=== PATIENT | male | born 1955 | race Caucasian/White ===

== ENCOUNTER 2022-11-13 13:37 | Inpatient (IN) ==
[2022-11-13] MEDS ORDERED: SODIUM CHLORIDE 0.9% 1,000 ML IV SCH (14:15)
[2022-11-13] MEDS ORDERED: ACETAMINOPHEN 500 MG TAB PO STA (14:38)
[2022-11-13] MEDS ORDERED: cefTRIAXone SODIUM 2,000 MG/70 ML BAG IV STA (14:38)
[2022-11-13 14:48] LABS: Basophils # (auto) 0.05 K/uL (0.00-0.20); Basophils % (auto) 0.3 %; Eosinophils % (auto) 0.5 %; Hematocrit (blood only) 34.6 % (42.0-52.0); Hemoglobin 11.6 g/dl (14.0-18.0); Immature Granulocytes # (auto) 0.12 K/uL (0.01-0.20); Immature Granulocytes % (auto) 0.7 %; Lymphocytes # (auto) 1.43 K/uL (1.20-3.40); Lymphocytes % (auto) 7.8 %; Mean Corpuscular Hemoglobin 28.5 pg (25.0-34.0); Mean Corpuscular Hgb Conc 33.5 g/dL (32.0-36.0); Mean Platelet Volume 11.1 fL (9.4-12.4); Monocytes # (auto) 1.41 K/uL (0.11-0.59); Monocytes % (auto) 7.7 %; Neutrophils # (auto) 15.28 K/uL (1.40-6.50); Platelet Count 302 K/uL (130-400); RDW Coefficient of Variation 13.2 % (11.5-14.5); RDW Standard Deviation 41.3 fL (36.4-46.3); Red Blood Count 4.07 M/uL (4.70-6.10); White Blood Count 18.39 K/ul (4.8-10.8)
[2022-11-13 15:04] LABS: Albumin Level 3.8 gm/dl (3.4-5.0); BUN Creatinine Ratio 17.8 (10-20); Bilirubin Direct 0.1 mg/dl (0-0.2); Bilirubin,Total 0.4 mg/dl (0.2-1.0); Calcium 8.6 mg/dl (8.6-10.3); Creatinine Clr Calc Pharmacy 95.6 ml/min; Est GFR (African American) 84.6 ml/min; Magnesium 1.9 mg/dl (1.7-2.4); Potassium 3.3 mmol/L (3.5-5.1); Total Protein 7.3 gm/dl (6.0-8.3)
[2022-11-13] MEDS: DAPTOmycin 575 MG in SYRINGE 0 ML IV SCH (15:10)
--- NOTE | 2022-11-13 15:52 | History & Physical Report ---
Date of Service November 13, 2022 Assessment & Plan (1) Septic joint of left knee joint: (2) History of total left knee replacement: Plan: Admit to [facility] Patient presenting from home with reports of left knee pain, swelling, erythema. S/p left TKA by Dr. Song on 10/13/2022. Had joint aspiration on 11/11 with culture growing MSSA In the ED, low-grade temp 38.0, WBC 18 K. BP stable, normal lactic acid. S/p IV daptomycin and IV ceftriaxone in ED, will continue with IV daptomycin Ortho consult, n.p.o. after midnight for possible procedure tomorrow (3) HTN (hypertension): Plan: Chronic, stable Continue lisinopril, lisinopril/HCTZ, amlodipine (4) HLD (hyperlipidemia): Plan: Chronic, stable Holding statin while on daptomycin DVT PROPHYLAXIS SCDs due to possible procedure tomorrow Patient seen in collaboration with Dr. Abbasi. I spent a total of 75 minutes coordinating, documenting, and providing care for this patient excluding time spent in the performance of separately billed services. This included personally reviewing all current laboratories and imaging studies, medication reconciliation, outpatient chart review, and discussion with specialists. History of Present Illness Chief Complaint: Left knee pain, swelling Primary Care Provider: Rafael Sanchez PA-C 66-year-old male with PMH HTN, HLD, and other problems listed below who presents to the ED for evaluation of left knee swelling and pain. History obtained from the patient. S/p left TKA on 10/13/[address] Song. Patient states he had been recovering well from surgery. 5 days ago, patient reports he developed chills and fever. The following day, his left knee was swollen and red. The redness and swelling progressively got worse and he continued to run a fever. He was seen in the orthopedics office on 12/11 and had joint aspiration done. He was also started on cephalexin. Culture grew MSSA. Once patient arrived to the hospital, left knee started to spontaneously drain purulent fluid. Patient denies chest pain and shortness of breath. No lightheadedness, dizziness, diaphoresis, syncopal events. He denies abdominal pain, nausea, vomiting, diarrhea. No urinary symptoms. In the ED, patient has low-grade temp 38.0, WBC 18 K. He was given IV ceftriaxone, IV daptomycin, IVF. Allergies Allergy/AdvReac Type Severity Reaction Status Date / Time No Known Allergies Allergy Unknown NO Unverified 02/18/09 14:39 Home Medications Medication Instructions Recorded Confirmed Type amlodipine 10 mg tablet 10 mg PO DAILY 11/13/22 11/13/22 History cephalexin 500 mg capsule 500 mg PO TID 11/13/22 11/13/22 History lisinopril 20 mg tablet 20 mg PO DAILY 11/13/22 11/13/22 History lisinopril 20 1 tab PO DAILY 11/13/22 11/13/22 History mg-hydrochlorothiazide 12.5 mg tablet lovastatin 20 mg tablet 20 mg PO DAILY 11/13/22 11/13/22 History oxycodone 5 mg tablet 5 - 10 mg PO Q6H PRN Pain 11/13/22 11/13/22 History Past Med/Surg History Medical History HLD (hyperlipidemia) HTN (hypertension) Surgical History History of cardiac cath 2009-Per patient report, WNL History of carpal tunnel surgery History of total left knee replacement History of total right knee replacement Social History (Updated 11/13/22 @ 16:05 by JOSE Kimbrough) Smoking Status: Never smoker Hx Alcohol Use: Yes Alcohol Intake Frequency: 2-4 x/Month Feels Safe at Home: Yes Gender Identity: Male Review of Systems Review of Systems: ROS per HPI, all other systems reviewed and negative Physical Exam Constitutional: WD/WN, vitals as above Eyes: PERRL, conjunctivae normal, anicteric sclerae ENMT: external ear and nose normal, oropharynx normal Respiratory: normal respiratory effort, lungs clear to auscultation Cardiovascular: Rate/Rhythm: regular rate and regular rhythm Heart Sounds: + murmur (Grade 3/6, systolic) Vessels: normal peripheral pulses Extremities: no edema Gastrointestinal (Abdomen): normal bowel sounds, soft, nontender, no hepatosplenomegaly Musculoskeletal: no cyanosis or clubbing, extremities motor strength 5/5 Knee: + knee abnormal to inspection, + skin erythema and + surgical incision Left knee edematous with erythema and purulent drainage from distal aspect of incision Skin: no rashes, warm and dry Neurologic: PERRL, EOMI, accommodation nl, no face palsy, no dysarthria Psychiatric: A+Ox3, euthymic affect Results & Data Results & Data Vital Signs (Past 12 Hours) Vital Signs Temp Pulse Pulse Resp BP BP Pulse Ox 11/13/22 15:14 88 18 156/90 H 96 11/13/22 14:34 99 11/13/22 13:46 38.0 C H 97 H 20 122/78 94 O2 Del Method 11/13/22 15:14 Room Air 11/13/22 14:34 Room Air 11/13/22 13:46 Room Air Laboratory Results Short CBC 11/13/22 Range/Units 14:07 WBC 18.39 H (4.8-10.8) K/ul Hgb 11.6 L (14.0-18.0) g/dl Hct 34.6 L (42.0-52.0) % Plt Count 302 (130-400) K/uL BMP 11/13/22 14:07 Sodium 131 L Potassium 3.3 L Chloride 98 Carbon Dioxide 25 BUN 19 Creatinine 1.07 Glucose 137 H Calcium 8.6 Liver Function 11/13/22 Range/Units 14:07 Total Bilirubin 0.4 (0.2-1.0) mg/dl Direct Bilirubin 0.1 (0-0.2) mg/dl AST 124 H (13-39) U/L ALT 115 H (7-52) U/L Alkaline Phosphatase 98 (34-104) U/L Albumin 3.8 (3.4-5.0) gm/dl Code Status & VTE Plan VTE Prophylaxis Plan VTE Prophylaxis will be ordered: Yes Supervising Physician Co-Signing Physician Notes Attending addendum The patient was seen and examined in the emergency room in presence of the family members He has been complaining of increasing swelling, redness and pain involving the left knee associated with fever and chills Status post aspiration on last Monday He has been ambulating with difficulty On examination No apparent distress at rest Hemodynamically stable with temperature of 38.0 Chest-. To auscultate bilaterally Heart-S1-S2, regular Abdomen-benign Left knee-increased swelling including swelling of the left leg, redness involving the anterior aspect of left knee with local warmth and tenderness. Movement of the left knee joint is not too painful He is admission labs, imaging studies reviewed Right knee infection most likely prepatellar bursitis with cellulitis Doubt any septic arthritis Ortho has been consulted for possible I&D Agree with assessment and plan as outlined above by Justine Abbasi
[2022-11-13] MEDS ORDERED: POTASSIUM CHLORIDE CRTAB 20 MEQ TABCR PO STA (16:05)
[2022-11-13 17:58] LABS: Appearance Urine Clear (Clear); Bilirubin Urine Negative (Negative); Blood Urine Negative (Negative); Color Urine Yellow; Glucose Urine UA Negative (Negative); Ketones Urine Negative (Negative); Leukocyte Esterase Urine Negative (Negative); Nitrite Urine Negative (Negative); Protein Urine Negative (Negative); Specific Gravity Urine 1.009 (1.000-1.030); Urobilinogen Urine Negative (Negative)
[2022-11-13] MEDS ORDERED: ACETAMINOPHEN 325 MG TAB PO PRN (18:27)
[2022-11-13] MEDS ORDERED: oxyCODONE HCL IR 5 MG TAB (IMMEDIATE RELEASE) PO PRN (18:27)
--- NOTE | 2022-11-13 18:34 | Emergency Department Note ---
Impression & Plan Septic joint of left knee joint, History of total left knee replacement ED Provider Note INFORMANT: Patient and family ED PROVIDER(S): Richie Kelly MD CHIEF COMPLAINT: Left knee infection PLAN: Disposition: Admitted Outpatient prescription management: none Referral: None MEDICAL DECISION MAKING: Patient presented because of concerns for left knee infection. On physical examination the patient does have significant warmth, erythema, tenderness, and purulent drainage. He will need further management in the hospital. Cultures were obtained and his records were reviewed. The patient was given IV daptomycin as well as a dose of Rocephin empirically. I did consult with orthopedics, Dr. Bautista. He did notify Dr. Song of the patient's arrival and need for admission. Patient will be seen tomorrow for washout by Dr. Song per on-call orthopedics. I did consult with the [facility] service. Patient was evaluated in the ER and admitted for further management under Dr. Abbasi service. Care/management discussed with: patient manager Level of care consideration(s): After review of the information above and other included data, I feel the patient requires admission to the hospital. Triage Nursing notes: reviewed and agree them. Vital Signs: reviewed and remarkable for fever Additional History obtained from: Family regarding the outpatient visit and course. Chronic Medical/Social Conditions affecting care: none Prior /Outside records reviewed: Prior cultures, synovial aspirate, and laboratory testing reviewed. Preoperative orthopedic note reviewed Differential Diagnosis: Septic joint, DVT, musculoskeletal, infection, joint effusion, trauma, lymphedem a, idiopathic, CHF, as well as other pathologies. Diagnostics, independently interpreted by me: ECG: none. Cardiac Monitoring: Cardiac monitoring ordered by me: The patient was placed on continuous cardiac monitoring and observed. It revealed a normal sinus rhythm at 77 beats per minute without ectopy or evidence of dysrhythmia. Medical decision rules: none Imaging studies: Deferred HPI: The patient is a 66-year-old male who arrives for evaluation of left knee infection. Patient had knee replacement surgery done by Dr. Song of [facility] at the end of the first week of October. Patient states things are going well. He was on prophylactic antibiotics after surgery. Patient then noted he was having pain and swelling, redness in the knee. He was seen by orthopedics this week and on the , 2 days ago the patient had an aspiration performed. He had blood work obtained. Patient was found to have a significant leukocytosis as well as elevated inflammatory markers. The patient had an aspiration done of his knee joint and he had greater than 130,000 white blood cells noted. A culture was performed. Culture did reveal the presence of Staphylococcus aureus. The patient was directed to the ER. Just prior to ER arrival the patient noted that the lower aspect of his incision started to drain purulent fluid. He noted that that helped significantly with his pain. Pt denies LOC, headache, diaphoresis, visual changes, neck pain, chest pain, breathing difficulties, nausea, vomiting, abdominal pain, back pain, melena, hematochezia, urinary symptoms, numbness, weakness, or other complaints. PAST MEDICAL HISTORY: See Below, DJD PAST SURGICAL HISTORY: See Below, knee replacement SOCIAL HISTORY: See Below, non-smoker HOME MEDICATIONS: See Below ALLERGIES: See Below VITALS: See Below PHYSICAL EXAMINATION: GENERAL: Awake, alert, mildly uncomfortable-appearing, in no distress HENT: Normocephalic, atraumatic. Oropharynx unremarkable. EYES: Normal conjunctiva. Sclera non-icteric. NECK: Inspection normal. Non-tender. Supple. No nuchal rigidity. FROM. No masses. RESPIRATORY: Clear to auscultation. No wheezes. No rales. Normal respiratory effort. CARDIAC: Normal rate. Normal rhythm. No murmurs. No rubs. Extremities warm and well perfused. Pulses equal. No JVD. GI: Soft, non-distended. No tenderness to palpation. No rebound or guarding. No masses. RECTAL: Deferred. MUSCULOSKELETAL: Atraumatic. Chest examination reveals no tenderness. The back is symmetrical on inspection without obvious abnormality. There is no CVA tenderness to palpation. No joint edema. LOWER EXTREMITIES: There is significant swelling, fluctuance, and erythema of the left knee. There is purulence draining from the inferior aspect of the incision. The patient has associated tenderness without crepitus. Range of motion is limited secondary to pain. No posterior calf tenderness bilaterally. NEURO: Normal sensorium. No sensory or motor deficits noted. SKIN: No rash or jaundice noted. PROCEDURES: none CRITICAL CARE: none OBSERVATION NOTE: none Past Med/Surg History Medical History HLD (hyperlipidemia) HTN (hypertension) Surgical History History of cardiac cath 2009-Per patient report, WNL History of carpal tunnel surgery History of total left knee replacement History of total right knee replacement Social History (Updated 11/13/22 @ 16:05 by JOSE Kimbrough) Smoking Status: Never smoker Hx Alcohol Use: Yes Alcohol Intake Frequency: 2-4 x/Month Feels Safe at Home: Yes Gender Identity: Male Allergies Allergies Allergy/AdvReac Type Severity Reaction Status Date / Time No Known Allergies Allergy Unknown NO Unverified 02/18/09 14:39 Home Meds Home Medications Medication Instructions Recorded Confirmed amlodipine 10 mg tablet 10 mg PO DAILY 11/13/22 11/13/22 cephalexin 500 mg capsule 500 mg PO TID 11/13/22 11/13/22 lisinopril 20 mg tablet 20 mg PO DAILY 11/13/22 11/13/22 lisinopril 20 1 tab PO DAILY 11/13/22 11/13/22 mg-hydrochlorothiazide 12.5 mg tablet lovastatin 20 mg tablet 20 mg PO DAILY 11/13/22 11/13/22 oxycodone 5 mg tablet 5 - 10 mg PO Q6H PRN Pain 11/13/22 11/13/22 Results & Data (ED) Vital Signs Vital Signs - 24 hr 11/13/22 13:46 11/13/22 14:34 11/13/22 15:14 Temperature 38.0 C H Temperature Source Temporal Artery Scan Pulse Rate 97 H Pulse Rate [Apical] 88 Pulse Rhythm [Apical] Regular Respiratory Rate 20 18 Respiratory Effort / Characteristics Non-Labored Non-Labored Spontaneous Respiratory Depth Normal Normal Respiratory Pattern Regular Blood Pressure 122/78 Blood Pressure [Right Arm] 156/90 H Blood Pressure Mean 92 Blood Pressure Mean [Right Arm] 112 Blood Pressure Position [Right Arm] Lying Pulse Oximetry 94 99 96 Oxygen Delivery Method Room Air Room Air Room Air Sepsis Recent Fever Within 48 Hours No Sepsis New/Unexplained Change in Mental Status No Sepsis Action Taken by Nursing No Action Required Laboratory Data 11/13/22 14:07 11/13/22 14:07 Lab Results 11/13/22 11/13/22 11/13/22 Range/Units 14:07 14:07 14:07 WBC 18.39 H (4.8-10.8) K/ul RBC 4.07 L (4.70-6.10) M/uL Hgb 11.6 L (14.0-18.0) g/dl Hct 34.6 L (42.0-52.0) % MCV 85.0 (80.0-100.0) fL MCH 28.5 (25.0-34.0) pg MCHC 33.5 (32.0-36.0) g/dL RDW Std Deviation 41.3 (36.4-46.3) fL RDW Coeff of Td 13.2 (11.5-14.5) % Plt Count 302 (130-400) K/uL MPV 11.1 (9.4-12.4) fL Immature Gran % (Auto) 0.7 % Neut % (Auto) 83.0 % Lymph % (Auto) 7.8 % Hart % (Auto) 7.7 % Eos % (Auto) 0.5 % Baso % (Auto) 0.3 % Neut # (Auto) 15.28 H (1.40-6.50) K/uL Lymph # (Auto) 1.43 (1.20-3.40) K/uL Hart # (Auto) 1.41 H (0.11-0.59) K/uL Eos # (Auto) 0.10 (0.00-0.50) K/uL Baso # (Auto) 0.05 (0.00-0.20) K/uL Immature Gran # (Auto) 0.12 (0.01-0.20) K/uL Sodium 131 L (136-145) mmol/L Potassium 3.3 L (3.5-5.1) mmol/L Chloride 98 (98-107) mmol/L Carbon Dioxide 25 (21-32) mmol/L Anion Gap 8 (3-11) BUN 19 (6-23) mg/dl Creatinine 1.07 (0.6-1.4) mg/dl Est Cr Clr Drug Dosing 95.6 ml/min Est GFR ( Amer) 84.6 ml/min Est GFR (Non-Af Amer) 73.0 ml/min BUN/Creatinine Ratio 17.8 (10-20) Glucose 137 H (70-99(Fasting)) mg/dl Lactate 1.6 (0.4-2.0) mmol/L Calcium 8.6 (8.6-10.3) mg/dl Magnesium 1.9 (1.7-2.4) mg/dl Total Bilirubin 0.4 (0.2-1.0) mg/dl Direct Bilirubin 0.1 (0-0.2) mg/dl AST 124 H (13-39) U/L ALT 115 H (7-52) U/L Alkaline Phosphatase 98 (34-104) U/L Total Protein 7.3 (6.0-8.3) gm/dl Albumin 3.8 (3.4-5.0) gm/dl Procalcitonin (0-0.5) ng/ml 11/13/22 Range/Units 14:07 WBC (4.8-10.8) K/ul RBC (4.70-6.10) M/uL Hgb (14.0-18.0) g/dl Hct (42.0-52.0) % MCV (80.0-100.0) fL MCH (25.0-34.0) pg MCHC (32.0-36.0) g/dL RDW Std Deviation (36.4-46.3) fL RDW Coeff of Td (11.5-14.5) % Plt Count (130-400) K/uL MPV (9.4-12.4) fL Immature Gran % (Auto) % Neut % (Auto) % Lymph % (Auto) % Hart % (Auto) % Eos % (Auto) % Baso % (Auto) % Neut # (Auto) (1.40-6.50) K/uL Lymph # (Auto) (1.20-3.40) K/uL Hart # (Auto) (0.11-0.59) K/uL Eos # (Auto) (0.00-0.50) K/uL Baso # (Auto) (0.00-0.20) K/uL Immature Gran # (Auto) (0.01-0.20) K/uL Sodium (136-145) mmol/L Potassium (3.5-5.1) mmol/L Chloride (98-107) mmol/L Carbon Dioxide (21-32) mmol/L Anion Gap (3-11) BUN (6-23) mg/dl Creatinine (0.6-1.4) mg/dl Est Cr Clr Drug Dosing ml/min Est GFR ( Amer) ml/min Est GFR (Non-Af Amer) ml/min BUN/Creatinine Ratio (10-20) Glucose (70-99(Fasting)) mg/dl Lactate (0.4-2.0) mmol/L Calcium (8.6-10.3) mg/dl Magnesium (1.7-2.4) mg/dl Total Bilirubin (0.2-1.0) mg/dl Direct Bilirubin (0-0.2) mg/dl AST (13-39) U/L ALT (7-52) U/L Alkaline Phosphatase (34-104) U/L Total Protein (6.0-8.3) gm/dl Albumin (3.4-5.0) gm/dl Procalcitonin 0.69 H (0-0.5) ng/ml Administered Medications Daptomycin 575 mg/ Syringe 11.5 mls @ 5.75 mls/min IV Q24H GERALD; Protocol Stop: 11/15/22 14:44 Last Admin: 11/13/22 15:10 Dose: 5.75 mls/min Documented By: JUAREZ Discontinued Medications Acetaminophen (Acetaminophen 500 Mg Tab) 1,000 mg PO NOW STA Stop: 11/13/22 14:39 Last Admin: 11/13/22 14:54 Dose: 1,000 mg Documented By: KT Sodium Chloride (Nss) 1,000 mls @ 999 mls/hr IV .Q1H1M GERALD Stop: 11/13/22 15:15 Last Infusion: 11/13/22 15:53 Dose: 0 mls/hr Documented By: Admin: 11/13/22 14:34 Dose: 999 mls/hr Documented By: KT Ceftriaxone Sodium (Rocephin) 2,000 mg in 70 mls @ 140 mls/hr IV NOW STA Stop: 11/13/22 15:07 Last Infusion: 11/13/22 15:53 Dose: 0 mls/hr Documented By: Admin: 11/13/22 14:54 Dose: 140 mls/hr Documented By: KT Potassium Chloride (Potassium Chloride Crtab 20 Meq Tabcr) 40 meq PO NOW STA Stop: 11/13/22 16:06 Last Admin: 11/13/22 16:13 Dose: 40 meq Documented By: JUAREZ Discharge Plan Visit Data Chief Complaint: Infection Stated Complaint: INFECTION LEFT KNEE S/P REPLACEMENT ED Provider: Richie Kelly Discharge Problem: Septic joint of left knee joint, History of total left knee replacement Patient Disposition: Admitted As Inpatient
[2022-11-14 07:45] LABS: Hematocrit (blood only) 31.5 % (42.0-52.0); Hemoglobin 10.7 g/dl (14.0-18.0); Mean Corpuscular Hemoglobin 28.5 pg (25.0-34.0); Platelet Count 305 K/uL (130-400); RDW Coefficient of Variation 13.4 % (11.5-14.5); RDW Standard Deviation 41.1 fL (36.4-46.3); Red Blood Count 3.75 M/uL (4.70-6.10); White Blood Count 17.61 K/ul (4.8-10.8)
[2022-11-14 07:54] LABS: Albumin Level 3.4 gm/dl (3.4-5.0); BUN Creatinine Ratio 19.3 (10-20); Bilirubin Direct 0.2 mg/dl (0-0.2); Bilirubin,Total 0.6 mg/dl (0.2-1.0); Calcium 8.2 mg/dl (8.6-10.3); Creatinine Clr Calc Pharmacy 116.3 ml/min; Est GFR (African American) 105.2 ml/min; Est GFR (Non-African American) 90.8 ml/min; Potassium 3.4 mmol/L (3.5-5.1); Total Protein 6.7 gm/dl (6.0-8.3)
[2022-11-14] MEDS: lisinopril 20 MG TAB PO SCH (08:57)
[2022-11-14] MEDS: LISINOPRIL/HCTZ 20/12.5MG 1 TAB TAB PO SCH (08:58)
[2022-11-14] MEDS: amLODIPine BESYLATE 5 MG TAB PO SCH (08:59)
--- NOTE | 2022-11-14 09:56 | Anesthesiology Consultation ---
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 History Surgery Operation Date: 11/14/22 10:10 Proposed Procedures p Left Knee Washout Incision and Drainage Possible Poly Exchange - Bal Song DO Height/Weight Height: 6 ft 2 in Weight: 119 kg Allergies Allergy/AdvReac Type Severity Reaction Status Date / Time No Known Allergies Allergy Unknown NO Unverified 02/18/09 14:39 Medications Home Medications Medication Instructions Recorded Confirmed Last Taken amlodipine 10 mg tablet 10 mg PO DAILY 11/13/22 11/13/22 Unknown cephalexin 500 mg capsule 500 mg PO TID 11/13/22 11/13/22 Unknown lisinopril 20 mg tablet 20 mg PO DAILY 11/13/22 11/13/22 Unknown lisinopril 20 1 tab PO DAILY 11/13/22 11/13/22 Unknown mg-hydrochlorothiazide 12.5 mg tablet lovastatin 20 mg tablet 20 mg PO DAILY 11/13/22 11/13/22 Unknown oxycodone 5 mg tablet 5 - 10 mg PO Q6H PRN Pain 11/13/22 11/13/22 Unknown Active Medications Generic Name Dose Route Start Last Admin Trade Name Freq PRN Reason Stop Dose Admin Amlodipine Besylate 10 mg 11/14/22 09:00 11/14/22 08:59 Amlodipine Besylate 5 Mg Tab PO 12/14/22 08:59 10 mg DAILY GERALD Administration Lisinopril/HCTZ 1 tab 11/14/22 09:00 11/14/22 08:58 Lisinopril/Hctz 20/12.5mg 1 Tab Tab PO 12/14/22 08:59 Not Given DAILY GERALD Daptomycin 575 mg/ Syringe 11.5 mls @ 5.75 mls/min 11/13/22 14:45 11/13/22 15:10 IV 11/15/22 14:44 5.75 mls/min Q24H GERALD Administration Protocol Lisinopril 20 mg 11/14/22 09:00 11/14/22 08:57 Lisinopril 20 Mg Tab PO 12/14/22 08:59 Not Given DAILY GERALD NPO Date Last Intake of Fluids: 11/14/22 Time Last Intake of Fluids: 08:35 Last Intake of Fluids Comment: sips only Date Last Intake of Solids: 11/13/22 Time Last Intake of Solids: 20:00 Past Medical History Medical History HLD (hyperlipidemia) HTN (hypertension) Past Surgical History Surgical History History of cardiac cath 2009-Per patient report, WNL History of carpal tunnel surgery History of total left knee replacement History of total right knee replacement Social History Smoking Status: Never smoker Do You Dip or Chew Tobacco: Yes (occasional) Hx Alcohol Use: Yes Alcohol type: beer alcohol intake frequency: a few times a week Hx Substance Use: No Physical Exam Vital Signs Last Vital Signs Temp 99.1 F 11/14/22 07:32 Pulse 70 11/14/22 07:32 Resp 16 11/14/22 07:32 BP 137/77 11/14/22 07:32 Pulse Ox 96 11/14/22 07:32 O2 Del Method Room Air 11/14/22 07:32 Testing Laboratory Results 11/14/22 07:08 11/14/22 07:08 Urine Color Yellow 11/13/22 17:39 Urine Appearance Clear (Clear) 11/13/22 17:39 Urine pH 7.0 (4.5-7.5) 11/13/22 17:39 Ur Specific Chappell 1.009 (1.000-1.030) 11/13/22 17:39 Urine Protein Negative (Negative) 11/13/22 17:39 Urine Glucose (UA) Negative (Negative) 11/13/22 17:39 Urine Ketones Negative (Negative) 11/13/22 17:39 Urine Nitrite Negative (Negative) 11/13/22 17:39 Ur Leukocyte Esterase Negative (Negative) 11/13/22 17:39 Electrocardiogram Date: 09/21/22 SB with 1st degree block Incomplete RBBB
[2022-11-14] MEDS: LACTATED RINGER'S 1,000 ML IV SCH (10:16)
[2022-11-14] MEDS ORDERED: ONDANSETRON INJ 2 MG/ML 2 ML VIAL IV PRN ×2 (11:06→15:37)
[2022-11-14] MEDS ORDERED: fentaNYL citrate PF 100 MCG/2 ML VIAL IV PRN (11:06)
[2022-11-14] MEDS ORDERED: ePHEDrine sulfate 50 MG/ML AMP IV PRN (11:06)
[2022-11-14] MEDS ORDERED: ATROPINE SULFATE 0.1 MG/ML 10ML SYR IV PRN (11:06)
[2022-11-14] MEDS ORDERED: HYDROmorphone INJ 1 MG/ML SYRINGE IV PRN ×2 (11:06→15:37)
[2022-11-14] MEDS ORDERED: LIDOCAINE 2% 2 ML VIAL/AMP(20MG/ML) INFIL ONE (11:25)
[2022-11-14] MEDS ORDERED: MIDAZOLAM HCL 1 MG/ML 2ML VIAL ONE (11:25)
[2022-11-14] MEDS ORDERED: PROPOFOL IV EMULSION 10 MG/ML 20 ML VIAL IV ONE (11:25)
[2022-11-14] MEDS ORDERED: fentaNYL citrate PF 100 MCG/2 ML VIAL ONE ×3 (11:25→13:55)
--- NOTE | 2022-11-14 12:10 | History & Physical Bridge Note ---
Date of Service November 14, 2022 History & Physical Bridge Note I have examined the patient, reviewed the History & Physical and in the interval since the performance of the History & Physical I have noted the following changes of clinical significance: no changes noted
[2022-11-14] MEDS ORDERED: ceFAZolin 330 MG/ML 1 GM VIAL ONE ×2 (12:24→12:25)
[2022-11-14] MEDS ORDERED: ceFAZolin 2000MG 2,000 MG/15 ML SYR IV ONE (13:16)
[2022-11-14] MEDS ORDERED: KETOROLAC 30 MG/ML VIAL ONE (14:06)
--- NOTE | 2022-11-14 14:35 | Operative Report ---
Post Operative Report Pre & Post Diagnosis Operation Date: 11/14/22 10:10 Pre-Op Diagnosis:Infected prepatellar bursa left knee Post-Op Diagnosis: Infected prepatellar bursa left knee I identified the patient and participated in the time-out.: Yes Procedure Operation Date: 11/14/22 10:10 Actual Procedures p Left Knee Washout Incision and DrainagePrepatellar bursa (Left) - Bal Song DO Surgeon Bal Song DO Latin Dancer none Estimated Blood Loss 10 Findings Consistent with Post-Op Diagnosis Patient presents after having undergone total knee arthroplasty October 13 and had an uncomplicated postoperative course until last Monday event began developing some redness over his prepatellar bursa had some plywood tape placed at the therapy and had a reaction to the plywood tape system presents for with an effusion to the emergency room the knee prepatellar bursa had been aspirated the previous Monday showed gram-positive cocci at the time of surgery the area of purulence was was all with prepatellar bursa there is no communication with the joint the medial retinacular repair is completely healed over with no evidence of any rents or defects and it subsequently from a remote side site superior lateral outside of the operative area an 18-gauge spinal needle was placed into the knee joint of clear synovial fluid was obtained was sent for stat Gram stain which revealed no organisms and there is no evidence of visual purulence or turbidity Specimens None Drains Medium bore Hemovac Anesthesia Type General Complications none Disposition Accompanied Patient To Recovery: No Disposition: Recovery Room Indications Patient presents with infected prepatellar bursa left knee with purulent drainage Description of Procedure After initiation of general anesthesia left lower extremity socially prepped and draped the previous incision was opened the purulent material and prepatellar bursa was all removed was sent for cultures and Gram stain the wound was irrigated with 12 L of sterile saline solution with antibiotic Ancef the there was no rent of the medial retinacular area was completely healed over the utilizing 18-gauge spinal needle coming from an unaffected area outside of the operative wound and field and aspiration of the joint fluid from the knee joint revealed clear synovial fluid which was sent for stat Gram stain revealed no evidence of organisms for this reason the decision was made to washout the prepatellar bursa and not exposed to the total knee to this tissue plane after thorough irrigation Versajet was used wound was irrigated with copious nonsterile saline solution indicated standard hemostasis was obtained and maintained tourniquet had been deflated the subcu was closed with a 2-0 Vicryl skin was closed with skin clips sterile compressive dressing was placed medium bore Hemovac was placed in the subcutaneous tissues patient was ultimately taken recovery in stable condition I attest to the content of the Intraoperative Record and any orders documented therein. Any exceptions are noted below.
--- NOTE | 2022-11-14 14:43 | Anesthesiology Progress Note ---
Date of Service November 14, 2022 Anesthesia Post Procedure Vital Signs Vital Signs: Temp Pulse Pulse Pulse Resp BP BP 11/14/22 10:08 98.2 F 80 20 139/90 11/14/22 07:32 99.1 F 70 16 137/77 11/13/22 20:00 11/13/22 19:51 99.0 F 83 18 136/82 11/13/22 18:29 11/13/22 18:29 98.2 F 77 16 133/69 11/13/22 17:11 74 18 145/79 H 11/13/22 15:58 79 11/13/22 15:14 88 18 156/90 H Pulse Ox O2 Del Method 11/14/22 10:08 96 Room Air 11/14/22 07:32 96 Room Air 11/13/22 20:00 Room Air 11/13/22 19:51 98 Room Air 11/13/22 18:29 Room Air 11/13/22 18:29 98 Room Air 11/13/22 17:11 96 Room Air 11/13/22 15:58 11/13/22 15:14 96 Room Air Pain Intensity Left Knee: Pain Intensity: 0 Transfer of Care Handoff Completed per policy Notes Mental Status: alert / awake / arousable and participated in evaluation Patient Amnestic to Procedure: Yes Nausea / Vomiting: adequately controlled Pain: adequately controlled Airway Patency, RR, SpO2: stable & adequate BP & HR: stable & adequate Hydration State: stable & adequate Anesthetic Complications: no major complications apparent and Pt Satisfied with anesthetic care
[2022-11-14] MEDS ORDERED: diphenhydrAMINE Capsule 25 MG CAP PO PRN (15:37)
[2022-11-14] MEDS ORDERED: bisacodyL 10 MG SUPP PR PRN (15:37)
[2022-11-14] MEDS ORDERED: MAGNESIUM HYDROXIDE SUSP 30 ML UDC PO PRN (15:37)
[2022-11-14] MEDS ORDERED: NALOXONE HCL 0.4 MG/1 ML VIAL/CARP IV PRN (15:37)
[2022-11-14] MEDS ORDERED: METOCLOPRAMIDE HCL INJ 5 MG/ML 2 ML VIAL IV PRN (15:37)
[2022-11-14] MEDS: POTASSIUM CHLORIDE / WTR 10 MEQ/100 ML PLCT IV SCH ×4 (15:47→19:45)
[2022-11-14] MEDS: oxyCODONE HCL IR 5 MG TAB (IMMEDIATE RELEASE) PO PRN (15:47)
--- NOTE | 2022-11-14 15:57 | XRay Report ---
TWO VIEWS LEFT KNEE CLINICAL HISTORY: Postoperative examination. FINDINGS: AP and crosstable lateral portable views of the left knee are obtained. A left knee arthrop lasty is in near anatomic alignment. There has been undersurface remodeling of the patella. No acute fracture is seen. There are expected postoperative changes around the knee including skin clips, a coronel rgical drain, soft tissue edema, and subcutaneous gas. IMPRESSION: Expected postoperative changes status post left knee arthroplasty. No acute fracture is s een. ACT 112: Negative or not required by law. Electronically signed by: Hao Garcia M.D. 11/14/2022 3:55 PM
[2022-11-14] MEDS: DAPTOmycin 575 MG in SYRINGE 0 ML IV SCH (16:05)
[2022-11-14] MEDS: SODIUM CHLORIDE 0.9% 1,000 ML IV SCH (16:05)
--- NOTE | 2022-11-14 16:43 | Hospitalist Progress Note ---
Date of Service November 14, 2022 Assessment & Plan (1) Septic prepatellar bursitis of left knee: (2) History of total left knee replacement: Plan: Patient presented from home with reports of left knee pain, swelling, erythema. S/p left TKA by Dr. Song on 10/13/2022. Had joint aspiration on 11/11 with culture growing MSSA In the ED, low-grade temp 38.0, WBC 18 K. BP stable, normal lactic acid. S/p IV daptomycin and IV ceftriaxone in ED. remains on IV daptomycin (day 2) Blood cultures NGTD S/p left knee washout I&D today by Dr. Song -found to have infected prepatellar bursitis; per operative report, aspiration of the joint fluid from the knee joint revealed clear synovial fluid which was sent for stat Gram stain revealed no evidence of organisms for this reason the decision was made to washout the prepatellar bursa and not exposed to the total knee. WBC 18 K --> 17 K ID consult in the morning (3) HTN (hypertension): Plan: Chronic, stable Continue lisinopril, lisinopril/HCTZ, amlodipine (4) HLD (hyperlipidemia): Plan: Chronic, stable Holding statin while on daptomycin DVT PROPHYLAXIS SCDs due to invasive procedure Dispo - pending ID evaluation Patient seen in collaboration with Dr. Smith. Admission and Anticipated Discharge Date Admission Date: November 13, 2022 Supervising Physician Co-Signing Physician Notes Patient seen and examined at bedside. Discussed with above provider. Patient underwent I&D by orthopedics today. Continue on daptomycin for now. Infectious disease to be consulted to determine the route and duration of antibiotics. Subjective Follow-up for left knee septic bursitis. Patient seen and examined. Underwent left knee washout I&D, prepatellar bursa today by Dr. Song. Patient reporting some left knee postoperatively however controlled with current medications. Denies chest pain and shortness of breath. No abdominal pain or nausea. Physical Exam Constitutional: WD/WN, vitals as above no acute distress Respiratory: normal respiratory effort, lungs clear to auscultation Cardiovascular: Rate/Rhythm: regular rate and regular rhythm Vessels: normal peripheral pulses Extremities: no edema Gastrointestinal (Abdomen): Percussion/Palpation: abdomen soft; abdomen nontender Musculoskeletal: S/p left knee surgery, surgical dressing CDI, drain in place draining serosan guineous drainage, CSM checks intact LLE Skin: no rashes, warm and dry Neurologic: no focal motor deficits Psychiatric: A+Ox3, euthymic affect Results & Data Results & Data Vital Signs (Past 12 Hours) Vital Signs Temp Pulse Pulse Resp BP BP Pulse Ox 11/14/22 16:04 36.8 C 65 18 117/62 97 11/14/22 15:38 37.0 C 68 18 133/73 97 11/14/22 15:15 70 13 112/78 95 11/14/22 15:05 37.6 C H 73 19 120/63 94 11/14/22 14:55 37.6 C H 70 14 120/68 96 11/14/22 14:45 72 18 114/65 95 11/14/22 14:35 70 20 129/62 95 11/14/22 14:25 36.3 C L 73 12 135/75 94 11/14/22 10:08 36.8 C 80 20 139/90 96 11/14/22 07:32 37.3 C 70 16 137/77 96 O2 Del Method O2 Flow Rate 11/14/22 16:04 Room Air 11/14/22 15:38 Room Air 11/14/22 15:15 Room Air 11/14/22 15:05 Room Air 11/14/22 14:55 Room Air 11/14/22 14:45 Room Air 11/14/22 14:35 Oxymask 6 11/14/22 14:25 Oxymask 9 11/14/22 10:08 Room Air 11/14/22 07:32 Room Air Laboratory Results Short CBC 11/14/22 Range/Units 07:08 WBC 17.61 H (4.8-10.8) K/ul Hgb 10.7 L (14.0-18.0) g/dl Hct 31.5 L (42.0-52.0) % Plt Count 305 (130-400) K/uL BMP 11/14/22 07:08 Sodium 135 L Potassium 3.4 L Chloride 101 Carbon Dioxide 24 BUN 17 Creatinine 0.88 Glucose 106 H Calcium 8.2 L Cardiac Enzymes 11/14/22 Range/Units 07:08 Total Creatine Kinase 45 (30-223) U/L Liver Function 11/14/22 Range/Units 07:08 Total Bilirubin 0.6 (0.2-1.0) mg/dl Direct Bilirubin 0.2 (0-0.2) mg/dl AST 75 H (13-39) U/L ALT 102 H (7-52) U/L Alkaline Phosphatase 75 (34-104) U/L Albumin 3.4 (3.4-5.0) gm/dl Urine 11/13/22 Range/Units 17:39 Urine Color Yellow Urine Appearance Clear (Clear) Urine pH 7.0 (4.5-7.5) Ur Specific [place] 1.009 (1.000-1.030) Urine Protein Negative (Negative) Urine Glucose (UA) Negative (Negative)
[2022-11-14] MEDS: SENNA 8.6 MG TAB PO SCH (20:36)
[2022-11-14] MEDS: DOCUSATE SODIUM 100 MG CAP PO SCH (20:37)
[2022-11-14] MEDS: ACETAMINOPHEN 500 MG TAB PO SCH (21:22)
[2022-11-15] MEDS: SODIUM CHLORIDE 0.9% 1,000 ML IV SCH (02:21)
[2022-11-15] MEDS: ACETAMINOPHEN 500 MG TAB PO SCH ×3 (05:10→21:35)
[2022-11-15 07:15] LABS: Hematocrit (blood only) 29.2 % (42.0-52.0); Hemoglobin 9.6 g/dl (14.0-18.0); Mean Corpuscular Hemoglobin 28.3 pg (25.0-34.0); Mean Corpuscular Hgb Conc 32.9 g/dL (32.0-36.0); Mean Corpuscular Volume 86.1 fL (80.0-100.0); Platelet Count 290 K/uL (130-400); RDW Coefficient of Variation 13.5 % (11.5-14.5); RDW Standard Deviation 42.3 fL (36.4-46.3); Red Blood Count 3.39 M/uL (4.70-6.10); White Blood Count 12.75 K/ul (4.8-10.8)
[2022-11-15 07:29] LABS: BUN Creatinine Ratio 19.5 (10-20); Calcium 7.9 mg/dl (8.6-10.3); Creatinine Clr Calc Pharmacy 132.9 ml/min; Est GFR (African American) 111.2 ml/min; Est GFR (Non-African American) 95.9 ml/min; Potassium 3.7 mmol/L (3.5-5.1)
[2022-11-15] MEDS: LACTATED RINGER'S 1,000 ML IV SCH (08:35)
[2022-11-15] MEDS: amLODIPine BESYLATE 5 MG TAB PO SCH (08:35)
[2022-11-15] MEDS: MULTIVITAMIN TAB PO SCH (08:36)
[2022-11-15] MEDS: LISINOPRIL/HCTZ 20/12.5MG 1 TAB TAB PO SCH (08:36)
[2022-11-15] MEDS: DOCUSATE SODIUM 100 MG CAP PO SCH ×2 (08:36→21:35)
[2022-11-15] MEDS: lisinopril 20 MG TAB PO SCH (08:36)
--- NOTE | 2022-11-15 10:18 | Orthopedic Progress Note ---
Date of Service November 15, 2022 Assessment & Plan (1) Septic prepatellar bursitis of left knee: Plan: Postop day 1 status post irrigation and debridement of left prepatellar septic bursitis. 2 cultures were drawn at the time of surgery. One was of the prepatellar bursal area which is showing gram-positive cocci. The second was a joint aspiration done at a site not near the infection. This is showing no organisms and many white cells. Await cx results. Previous aspiration of the prepatellar bursa showed MSSA. Likely same organism. Continue IV antibx at this time. Plan for dressing change tomorrow. Admission and Anticipated Discharge Date Admission Date: November 13, 2022 Subjective Postop day 1 Patient sitting up at the bedside going through his physical therapy session this morning. No complaints at this time. Pain is controlled. He feels well. Physical Exam Physical Exam: Dressings are C/D/I. Calves are soft, NT. NV intact. Results & Data Vital Signs (Past 12 Hours) Vital Signs Temp Pulse Resp BP Pulse Ox O2 Del Method 11/15/22 08:44 37.0 C 76 18 149/76 H 97 Room Air 11/15/22 08:33 76 132/76 11/15/22 04:27 37.2 C 67 18 131/75 99 Room Air 11/14/22 22:22 36.9 C 68 18 119/70 96 Room Air Laboratory Results Laboratory Results WBC 12.75 K/ul (4.8-10.8) H 11/15/22 06:47 RBC 3.39 M/uL (4.70-6.10) L 11/15/22 06:47 Hgb 9.6 g/dl (14.0-18.0) L 11/15/22 06:47 Hct 29.2 % (42.0-52.0) L 11/15/22 06:47 MCV 86.1 fL (80.0-100.0) 11/15/22 06:47 MCH 28.3 pg (25.0-34.0) 11/15/22 06:47 MCHC 32.9 g/dL (32.0-36.0) 11/15/22 06:47 RDW Std Deviation 42.3 fL (36.4-46.3) 11/15/22 06:47 RDW Coeff of Td 13.5 % (11.5-14.5) 11/15/22 06:47 Plt Count 290 K/uL (130-400) 11/15/22 06:47 MPV 11.0 fL (9.4-12.4) 11/15/22 06:47 Immature Gran % (Auto) 0.7 % 11/13/22 14:07 Neut % (Auto) 83.0 % 11/13/22 14:07 Lymph % (Auto) 7.8 % 11/13/22 14:07 Boyd % (Auto) 7.7 % 11/13/22 14:07 Eos % (Auto) 0.5 % 11/13/22 14:07 Baso % (Auto) 0.3 % 11/13/22 14:07 Neut # (Auto) 15.28 K/uL (1.40-6.50) H 11/13/22 14:07 Lymph # (Auto) 1.43 K/uL (1.20-3.40) 11/13/22 14:07 Boyd # (Auto) 1.41 K/uL (0.11-0.59) H 11/13/22 14:07 Eos # (Auto) 0.10 K/uL (0.00-0.50) 11/13/22 14:07 Baso # (Auto) 0.05 K/uL (0.00-0.20) 11/13/22 14:07 Immature Gran # (Auto) 0.12 K/uL (0.01-0.20) 11/13/22 14:07 Sodium 135 mmol/L (136-145) L 11/15/22 06:47 Potassium 3.7 mmol/L (3.5-5.1) 11/15/22 06:47 Chloride 102 mmol/L (98-107) 11/15/22 06:47 Carbon Dioxide 26 mmol/L (21-32) 11/15/22 06:47 Anion Gap 7 (3-11) 11/15/22 06:47 BUN 15 mg/dl (6-23) 11/15/22 06:47 Creatinine 0.77 mg/dl (0.6-1.4) 11/15/22 06:47 Est Cr Clr Drug Dosing 132.9 ml/min 11/15/22 06:47 Est GFR ( Amer) 111.2 ml/min 11/15/22 06:47 Est GFR (Non-Af Amer) 95.9 ml/min 11/15/22 06:47 BUN/Creatinine Ratio 19.5 (10-20) 11/15/22 06:47 Glucose 111 mg/dl (70-99(Fasting)) H 11/15/22 06:47 Lactate 1.6 mmol/L (0.4-2.0) 11/13/22 14:07 Calcium 7.9 mg/dl (8.6-10.3) L 11/15/22 06:47 Magnesium 1.9 mg/dl (1.7-2.4) 11/13/22 14:07 Total Bilirubin 0.6 mg/dl (0.2-1.0) 11/14/22 07:08 Direct Bilirubin 0.2 mg/dl (0-0.2) 11/14/22 07:08 AST 75 U/L (13-39) H 11/14/22 07:08 ALT 102 U/L (7-52) H 11/14/22 07:08 Alkaline Phosphatase 75 U/L (34-104) 11/14/22 07:08 Total Creatine Kinase 45 U/L (30-223) 11/14/22 07:08 Total Protein 6.7 gm/dl (6.0-8.3) 11/14/22 07:08 Albumin 3.4 gm/dl (3.4-5.0) 11/14/22 07:08 Procalcitonin 0.69 ng/ml (0-0.5) H 11/13/22 14:07 Urine Color Yellow 11/13/22 17:39 Urine Appearance Clear (Clear) 11/13/22 17:39 Urine pH 7.0 (4.5-7.5) 11/13/22 17:39 Ur Specific [employer] 1.009 (1.000-1.030) 11/13/22 17:39 Urine Protein Negative (Negative) 11/13/22 17:39 Urine Glucose (UA) Negative (Negative) 11/13/22 17:39 Urine Ketones Negative (Negative) 11/13/22 17:39 Urine Blood Negative (Negative) 11/13/22 17:39 Urine Nitrite Negative (Negative) 11/13/22 17:39 Urine Bilirubin Negative (Negative) 11/13/22 17:39 Urine Urobilinogen Negative (Negative) 11/13/22 17:39 Ur Leukocyte Esterase Negative (Negative) 11/13/22 17:39 SARS-CoV-2 (PCR) NEGATIVE (Negative) 11/13/22 15:46 Impressions Knee X-Ray 11/14/22 14:46 TWO VIEWS LEFT KNEE CLINICAL HISTORY: Postoperative examination. FINDINGS: AP and crosstable lateral portable views of the left knee are obtained. A left knee arthroplasty is in near anatomic alignment. There has been undersurface remodeling of the patella. No acute fracture is seen. There are expected postoperative changes around the knee including skin clips, a surgical drain, soft tissue edema, and subcutaneous gas. IMPRESSION: Expected postoperative changes status post left knee arthroplasty. No acute fracture is seen. ACT 112: Negative or not required by law. Electronically signed by: Hao Garcia M.D. 11/14/2022 3:55 PM
[2022-11-15] MEDS: oxyCODONE HCL IR 5 MG TAB (IMMEDIATE RELEASE) PO PRN ×2 (12:09→17:54)
[2022-11-15] MEDS ORDERED: DAPTOmycin 400 MG in SYRINGE 0 ML IV SCH (15:30)
--- NOTE | 2022-11-15 16:28 | Infectious Disease Consult ---
Date of Service November 15, 2022 Telehealth Information I performed this visit using a real-time telehealth connection between my location and the patients location ([facility]). After connecting through interactive tele-video, patient was identified by name and date of and/or wristband check.Patient (or authorized healthcare b2b outside sales representative) was informed that this was a telemedicine visit and it was being conducted confidentially over secure lines. My office door was closed and no o ne else was present in the room with me.Patient (or authorized healthcare b2b outside sales representative) provided consent to proceed with the visit, expressed an understanding of privacy and security of the telemedicine visit, and gave permission to have a hospital b2b outside sales representative in the room in order to assist with the visit and to conduct portions of the visit, as needed. I informed the patient (or authorized healthcare b2b outside sales representative) that I reviewed their record and presented the opportunity for them to ask any questions regarding the visit today. The patient agreed to participate. Assessment & Plan (1) Septic joint of left knee joint: Plan: This patient had culture that was labeled "synovial fluid" and this culture grew MSSA. In the setting of a recent TKR, this is suggestive of a PJI. For patients with a oxa-S Staphylococcal PJI who have undergone a DAIR, we would recommend 6 weeks of IV Ancef followed by lifelong PO cefadroxil. If the patient does not have contraindications, he should also receive adjunctive oral rifampin for the first 6 months of treatment. While on ABX, he should have weekly CBCd, CMP and CRP. He must not drink alcohol while taking rifampin. (Of note, the patient's OR cultures are still in process. I suspect that they will also grow MSSA but these will need to be followed up to ensure that the plan remains accurate). If the Orthopedics team does NOT feel that the patient has a PJI (but rather ?prepatellar bursitis) then page ID so that we can change the plan. These recommendations may not be final. Unless specifically noted otherwise, all orders are deferred to the primary/requesting service(s). I am based out of [facility]) and cannot regularly monitor patients unless they are admitted to the [facility]. You must contact ID again re: further assistance (or if there is any significant change in the patient's condition). Coverage changes frequently. Check the on-call schedule to find which provider is currently covering your location. If you have questions/concerns about the recommendations, make sure that you reach out to ID. History of Present Illness History of Present Illness The patient was admitted for knee pain/swelling in the context of a previous replacement. Workup revealed MSSA from ?synovial cultures. The patient was seen by Orthopedics and they took the patient for I&D (11/14). Allergies Allergy/AdvReac Type Severity Reaction Status Date / Time chlorhexidine Allergy Rash Verified 11/14/22 10:15 Home Medications Medication Instructions Recorded Confirmed Type amlodipine 10 mg tablet 10 mg PO DAILY 11/13/22 11/13/22 History cephalexin 500 mg capsule 500 mg PO TID 11/13/22 11/13/22 History lisinopril 20 mg tablet 20 mg PO DAILY 11/13/22 11/13/22 History lisinopril 20 1 tab PO DAILY 11/13/22 11/13/22 History mg-hydrochlorothiazide 12.5 mg tablet lovastatin 20 mg tablet 20 mg PO DAILY 11/13/22 11/13/22 History oxycodone 5 mg tablet 5 - 10 mg PO Q6H PRN Pain 11/13/22 11/13/22 History Patient History Medical History HLD (hyperlipidemia) HTN (hypertension) Surgical History History of cardiac cath 2009-Per patient report, WNL History of carpal tunnel surgery History of total left knee replacement History of total right knee replacement Social History (Updated 11/13/22 @ 16:05 by JOSE Kimbrough) Smoking Status: Never smoker Do You Dip or Chew Tobacco: Yes (occasional); Hx Alcohol Use: Yes Alcohol type: beer Alcohol Intake Frequency: 2-4 x/Month Hx Substance Use: No Communication Ability: Effective Current Living Situation: Spouse Feels Safe at Home: Yes Safety Concerns: Feels Safe At This Time Gender Identity: Male Assistive Devices: Cane and Walker Review of Systems Unable to connect - televideo equipment was not functioning properly. Attempted multiple times. Physical Exam Unable to connect - televideo equipment was not functioning properly. Attempted multiple times. Results & Data Vital Signs (Past 12 Hours) Vital Signs Temp Pulse Resp BP BP Pulse Ox O2 Del Method 10/03/23 15:15 37.0 C 72 16 117/67 95 Room Air 11/15/22 11:51 37.4 C 87 18 152/82 H 96 Room Air 11/15/22 08:44 37.0 C 76 18 149/76 H 97 Room Air 11/15/22 08:33 76 132/76 Laboratory Results See EMR Diagnostic Findings [facility] [address] [place] [address] / Director: Simon Mcleod M.D. Clinical Laboratory Report Name: RAGHAV MCKENNA Acct: [id number] Status: [facility] : 1955 [facility] Date: 11/11/22 Age: 66 Sex: M Dis Date: Loc: Laboratory Main [place] Spec: [id number] Collected: 11/11/220 Received: 11/11/22-[address]: Bal Song,D.O. Source: Joint Fluid/Space (Synovial) OV Order: Ordered: Aer/Etta Cult/Sm Comments: Critical gram stain result called to Jennifer Barros ([facility] [place] On 11/11/22 at 1640 by Matt Llanes and results were verbalized back. Procedure Result Verified Site Gram Stain Final 11/11/22-1640 Gram Stain Result Many Polys Many Gram Positive Cocci Aero/Etta Cult Preliminary 11/15/22 Organism 1 Staphylococcus aureus Quantity Many Sens Sensitivities to Follow No Anaerobes Isolated No Anaerobes Isolated S aureus RX M.I.C. --- --------- Clindamycin S <=0.5 Daptomycin S <=0.5 Erythromycin S <=0.5 Oxacillin S <=0.25 Tetracycline S <=4 Trimeth/Sulfa S <=0.5/9.5 Vancomycin S 2 S = SENSITIVE I = INTERMEDIATE R = RESISTANT Name: RAGHAV MCKENNA : 1955 PAGE 1 Printed: 11/15/22 4283 END OF REPORT [address], [place] [address] / Director: Simon Mcleod M.D. Clinical Laboratory Report Name: RAGHAV MCKENNA Acct: [id number] Status: ADM [place] : 1955 [facility] Date: 11/13/22 Age: 66 Sex: M Dis Date: Loc: Medical/Surgical/Ortho [address] [place] [address]/Bed: [facility] Spec: [id number] Collected: 11/13/22 Received: 11/13/[address]: Leticia, Richie Medrano MD Source: Blood OV Order: Ordered: Blood Culture Comments: Comment Default is separate sites, same time Procedure Result Verified Site Blood Culture Aerobic Preliminary 11/15/22 No growth in Aerobic bottle after 48 hours. Blood Culture Anaerobic Preliminary 11/15/22 No growth in Anaerobic bottle after 48 hours. Name: RAGHAV MCKENNA : 1955 PAGE 1 Printed: 11/15/221629 END OF REPORT [address] [place] [address] / Director: Simon Mcleod M.D. Clinical Laboratory Report Name: RAGHAV MCKENNA Acct: [id number] Status: ADM [place] : 1955 [facility] Date: 11/13/22 Age: 66 Sex: M Dis Date: Loc: Medical/Surgical/Ortho [address] [place] [address]/Bed: [facility] Spec: [id number] Collected: 11/13/22 Received: 11/13/[address]: Leticia, Richie Medrano MD Source: Blood OV Order: Ordered: Blood Culture Comments: Comment Default is separate sites, same time Procedure Result Verified Site Blood Culture Aerobic Preliminary 11/15/22 No growth in Aerobic bottle after 48 hours. Blood Culture Anaerobic Preliminary 11/15/22 No growth in Anaerobic bottle after 48 hours. Name: RAGHAV MCKENNA : 1955 PAGE 1 Printed: 11/15/221630 END OF REPORT [address] [place] [address] / Director: Simon Mcleod M.D. Clinical Laboratory Report Name: RAGHAV MCKENNA Acct: [id number] Status: ADM [place] : 1955 [facility] Date: 11/13/22 Age: 66 Sex: M Dis Date: Loc: Medical/Surgical/Ortho [address] [place] [address]/Bed: W363-1 Spec: [id number] Collected: 11/14/22-UNK Received: 11/14/[address]: Bal Song,D.O. Copy To: Omar Abbasi MD Source: Knee,Left OV Order: Ordered: Aer/Etta Cult/Sm Comments: Comment Culture #1--Left Knee Prepatellar Procedure Result Verified Site Gram Stain Final 11/15/22 Gram Stain Result Many WBCs Seen Few Gram Positive Cocci Critical result called to IDALMIS ARCOS 3W On 11/15/22 at 0725 by Kitty Juan and results were verbalized back. Aero/Etta Cult Preliminary 11/15/22-1420 Organism 1 Staphylococcus species Quantity Moderate Sens Sensitivities to Follow Name: RAGHAV MCKENNA : 1955 PAGE 1 Printed: 11/15/22 3249 END OF REPORT [address] [place] [address] / Director: Simon Mcleod M.D. Clinical Laboratory Report Name: RAGHAV MCKENNA Acct: [id number] Status: ADM [place] : 1955 [facility] Date: 11/13/22 Age: 66 Sex: M Dis Date: Loc: Medical/Surgical/Ortho 3 [facility]/Bed: W363-1 Spec: [id number] Collected: 11/14/22-UNK Received: 11/14/22-[address]: Bal Song,D.O. Copy To: Omar Abbasi MD Source: Knee,Left OV Order: Ordered: Aer/Etta Cult/Sm Comments: Comment Culture #2--Left Knee Joint Fluid, stat gram stain Procedure Result Verified Site Gram Stain Final 11/14/22-1359 Gram Stain Result Few Mononucleated Cells Many Polys No Organisms Seen Aero/Etta Cult Preliminary 11/15/22-105 No growth to date. Name: RAGHAV MCKENNA : 1955 PAGE 1 Printed: 11/15/22 5230 END OF REPORT
--- NOTE | 2022-11-15 17:22 | Hospitalist Progress Note ---
Date of Service November 15, 2022 Assessment & Plan (1) Septic prepatellar bursitis of left knee: (2) History of total left knee replacement: Plan: Patient presented from home with reports of left knee pain, swelling, erythema. S/p left TKA by Dr. Song on 10/13/2022. Had joint aspiration on 11/11 with culture growing MSSA In the ED, low-grade temp 38.0, WBC 18 K. BP stable, normal lactic acid. S/p IV daptomycin and IV ceftriaxone in ED. remains on IV daptomycin (day 3) Blood cultures NGTD POD#1 left knee washout I&D today by Dr. Song -found to have infected prepatellar bursitis; per operative report, aspiration of the joint fluid from the knee joint revealed clear synovial fluid which was sent for stat Gram stain revealed no evidence of organisms for this reason the decision was made to washout the prepatellar bursa and not exposed to the total knee. WBC 18 K --> 17 K --> 12.75 Remains afebrile Operative culture preliminary growing Staphylococcus species Will discuss plan with ID tomorrow (3) HTN (hypertension): Plan: Chronic, stable Continue lisinopril, lisinopril/HCTZ, amlodipine (4) HLD (hyperlipidemia): Plan: Chronic, stable Holding statin while on daptomycin DVT PROPHYLAXIS SCDs Dispo - pending, will discus plan with ID tomorrow Patient seen in collaboration with Dr. Smith. Admission and Anticipated Discharge Date Admission Date: November 13, 2022 Supervising Physician Co-Signing Physician Notes Patient seen and examined at bedside. Discussed with above provider. He is doing well postoperatively. Reports that pain is well controlled. No longer having fever or chills. Reports that fatigue has improved. Appreciate infectious disease input. Plan to discuss with infectious disease as patient was found to have septic suprapatellar bursitis intraoperatively then septic joint arthritis. Final duration and route of antibiotic to be determined. Continue on current antibiotics. Subjective Follow-up for left knee septic bursitis, s/p left knee washout I&D, prepatellar bursa. Patient seen and examined. Doing well, reports pain is well controlled. Offers no complaints. Physical Exam Constitutional: WD/WN, vitals as above Respiratory: normal respiratory effort, lungs clear to auscultation Cardiovascular: Rate/Rhythm: regular rate and regular rhythm Vessels: normal peripheral pulses Extremities: no edema Gastrointestinal (Abdomen): Percussion/Palpation: abdomen soft; abdomen nontender Musculoskeletal: S/p left knee surgery, dressing CDI, drain in place draining serosanguineous drainage, CSM checks intact LLE Skin: no rashes, warm and dry Neurologic: no focal motor deficits Psychiatric: A+Ox3, euthymic affect Results & Data Results & Data Vital Signs (Past 12 Hours) Vital Signs Temp Pulse Resp BP BP Pulse Ox O2 Del Method 11/15/22 15:15 37.0 C 72 16 117/67 95 Room Air 11/15/22 11:51 37.4 C 87 18 152/82 H 96 Room Air 11/15/22 08:44 37.0 C 76 18 149/76 H 97 Room Air 11/15/22 08:33 76 132/76 Laboratory Results Short CBC 11/15/22 Range/Units 06:47 WBC 12.75 H (4.8-10.8) K/ul Hgb 9.6 L (14.0-18.0) g/dl Hct 29.2 L (42.0-52.0) % Plt Count 290 (130-400) K/uL BMP 11/15/22 06:47 Sodium 135 L Potassium 3.7 Chloride 102 Carbon Dioxide 26 BUN 15 Creatinine 0.77 Glucose 111 H Calcium 7.9 L
[2022-11-15] MEDS: SENNA 8.6 MG TAB PO SCH (21:35)
[2022-11-16] MEDS: ACETAMINOPHEN 500 MG TAB PO SCH ×3 (05:17→21:32)
[2022-11-16] MEDS: oxyCODONE HCL IR 5 MG TAB (IMMEDIATE RELEASE) PO PRN ×3 (05:20→21:33)
--- NOTE | 2022-11-16 07:19 | Operative Report ---
Post Operative Report Pre & Post Diagnosis Operation Date: 11/14/22 10:10 Pre-Op DiagnosisInfected prepatellar bursa left knee Post-Op DiagnosInfected prepatellar bursa left knee I identified the patient and participated in the time-out.: Yes Procedure Operation Date: 11/14/22 10:10 Actual Procedures p Left Knee Washout Incision and DrainageOf prepatellar bursa (Left) - Bal Song DO Surgeon Bal Song DO [employer] Supervisor none Estimated Blood Loss 10 Findings Consistent with Post-Op Diagnosis Patient presents greater than 1 month status post left total knee arthroplasty was infected prepatellar bursa for I&D the was no rent into the knee joint fluid aspirated from a outside of the operative field revealed clear synovial fluid which was sent for stat Gram stain revealed no organisms Specimens None Drains Medium bore Anesthesia Type General Complications none Disposition Accompanied Patient To Recovery: No Disposition: Recovery Room Indications Patient presents with purulent drainage from prepatellar bursa left knee Description of Procedure After initiation of general anesthesia left lower extremity subsequent prepped and draped in sterile fashion surgery type the left knee incision was opened the wound was irrigated copious muscle sterile saline solution via 12 L of sterile saline solution with Ancef there is no penetration into the deep joint after thorough evaluation flexion of the knee subsequently coming from an extra wound area superbly superior to the incision clear synovial fluid was aspirated from the knee joint was sent for stat Gram stain no organisms were noted after thorough irrigation revealed lavage a medium bore Hemovac placed in the deep wound of the prepatellar bursa was closed with 2-0 Vicryl and skin clips sterile compressive dressings placed patient taken recovery stable condition. I attest to the content of the Intraoperative Record and any orders documented therein. Any exceptions are noted below.
[2022-11-16 07:38] LABS: Hematocrit (blood only) 31.6 % (42.0-52.0); Hemoglobin 10.5 g/dl (14.0-18.0); Mean Corpuscular Hemoglobin 28.1 pg (25.0-34.0); Mean Corpuscular Hgb Conc 33.2 g/dL (32.0-36.0); Mean Corpuscular Volume 84.5 fL (80.0-100.0); Platelet Count 412 K/uL (130-400); RDW Coefficient of Variation 13.6 % (11.5-14.5); RDW Standard Deviation 42.2 fL (36.4-46.3); Red Blood Count 3.74 M/uL (4.70-6.10); White Blood Count 12.78 K/ul (4.8-10.8)
[2022-11-16 07:41] LABS: BUN Creatinine Ratio 17.9 (10-20); Calcium 8.2 mg/dl (8.6-10.3); Creatinine Clr Calc Pharmacy 121.8 ml/min; Est GFR (African American) 107.2 ml/min; Est GFR (Non-African American) 92.5 ml/min; Potassium 3.8 mmol/L (3.5-5.1)
[2022-11-16] MEDS: DOCUSATE SODIUM 100 MG CAP PO SCH ×2 (08:28→21:32)
[2022-11-16] MEDS: amLODIPine BESYLATE 5 MG TAB PO SCH (08:28)
[2022-11-16] MEDS: lisinopril 20 MG TAB PO SCH (08:28)
[2022-11-16] MEDS: LISINOPRIL/HCTZ 20/12.5MG 1 TAB TAB PO SCH (08:29)
[2022-11-16] MEDS: MULTIVITAMIN TAB PO SCH (08:30)
[2022-11-16] MEDS: LACTATED RINGER'S 1,000 ML IV SCH (08:31)
--- NOTE | 2022-11-16 10:49 | Infectious Disease Progress Nt ---
Date of Service November 16, 2022 Telehealth Information I performed this visit using a real-time telehealth connection between my location and the patients location ([facility]). After connecting through interactive tele-video, patient was identified by name and date of and/or wristband check.Patient (or authorized healthcare veterans employment representative) was informed that this was a telemedicine visit and it was being conducted confidentially over secure lines. My office door was closed and no o ne else was present in the room with me.Patient (or authorized healthcare veterans employment representative) provided consent to proceed with the visit, expressed an understanding of privacy and security of the telemedicine visit, and gave permission to have a hospital veterans employment representative in the room in order to assist with the visit and to conduct portions of the visit, as needed. I informed the patient (or authorized healthcare veterans employment representative) that I reviewed their record and presented the opportunity for them to ask any questions regarding the visit today. The patient agreed to participate. Assessment & Plan (1) Septic prepatellar bursitis of left knee: (2) Septic joint of left knee joint: (3) History of total left knee replacement: (4) HLD (hyperlipidemia): (5) HTN (hypertension): Plan I was contacted by hospitalist Justine Hobbs requesting a note stating that patient does not need to be treated for PJI as according to her after discussion with orthopedics there was no joint involvement .If there was no joint involvement can treat for 4 weeks Results & Data Vital Signs (Past 12 Hours) Vital Signs Temp Pulse Resp BP Pulse Ox O2 Del Method 11/16/22 08:26 75 128/76 11/16/22 07:35 36.5 C 71 18 121/75 96 Room Air
--- NOTE | 2022-11-16 10:51 | Infectious Disease Progress Nt ---
Date of Service November 16, 2022 Results & Data Vital Signs (Past 12 Hours) Vital Signs Temp Pulse Resp BP Pulse Ox O2 Del Method 11/16/22 08:26 75 128/76 11/16/22 07:35 36.5 C 71 18 121/75 96 Room Air
--- NOTE | 2022-11-16 14:50 | XRay Report ---
XR chest 1V portable HISTORY: 66 years-old Male picc line to right arm status post placement of a right-sided PICC COMPARISON: 02/18/2009 TECHNIQUE: AP view of the chest FINDINGS: Right-sided PICC is noted with distal tip projected over the superior cavoatrial junction. Cardiac si lhouette is enlarged. No pneumothorax, pleural effusion, airspace consolidation or pulmonary edema. B ones appear grossly intact. IMPRESSION: Status post placement of a right-sided PICC. No postprocedural pneumothorax identified. ACT 112: Negative or not required by law. The above report was generated using voice recognition software. It may contain grammatical, syntax o r spelling errors. Electronically signed by: Jamison Cornejo M.D. 11/16/2022 2:49 PM
[2022-11-16] MEDS: ceFAZolin 2000MG 2,000 MG/15 ML SYR IV SCH ×2 (15:34→21:33)
--- NOTE | 2022-11-16 16:14 | Hospitalist Progress Note ---
Date of Service November 16, 2022 Assessment & Plan (1) Septic prepatellar bursitis of left knee: (2) History of total left knee replacement: Plan: Patient presented from home with reports of left knee pain, swelling, erythema. S/p left TKA by Dr. Song on 10/13/2022. Had joint aspiration on 11/11 with culture growing MSSA In the ED, low-grade temp 38.0, WBC 18 K. BP stable, normal lactic acid. S/p IV daptomycin and IV ceftriaxone in ED. IV daptomycin (day 4) --> de- escalate to IV Ancef today Blood cultures NGTD POD#2 left knee washout I&D today by Dr. Song -found to have infected prepatellar bursitis; per operative report, aspiration of the joint fluid from the knee joint revealed clear synovial fluid which was sent for stat Gram stain revealed no evidence of organisms for this reason the decision was made to washout the prepatellar bursa and not exposed to the total knee. WBC 18 K --> 17 K --> 12.75 --> 12.78 Remains afebrile Operative culture MSSA ID recommending 4 weeks IV Ancef. PICC line ordered. CM following. (3) HTN (hypertension): Plan: Chronic, stable Continue lisinopril, lisinopril/HCTZ, amlodipine (4) HLD (hyperlipidemia): Plan: Chronic, stable Holding statin while on daptomycin - resume at d/c DVT PROPHYLAXIS SCDs Dispo - medically stable for discharge, awaiting home IV antibx arrangements Patient seen in collaboration with Dr. Patricio. Admission and Anticipated Discharge Date Admission Date: November 13, 2022 Supervising Physician Co-Signing Physician Notes delayed entry date of service noted above Attending Addendum: care coordinated with TATYANA Hobbs please refer to her notes for full details, I agree with her notes patient seen and examined, records reviewed by myself as well ASSESSMENT AND PLAN diagnoses and plan of care as per TATYANA Hobbs's notes Mj Patricio MD Subjective Follow-up for left knee septic bursitis, s/p left knee washout I&D, prepatellar bursa. Patient seen and examined. Doing well. Reports pain is well controlled. Remains afebrile. Offers no complaints. Physical Exam Constitutional: WD/WN, vitals as above Respiratory: normal respiratory effort, lungs clear to auscultation Cardiovascular: Rate/Rhythm: regular rate and regular rhythm Vessels: normal peripheral pulses Extremities: no edema Gastrointestinal (Abdomen): Percussion/Palpation: abdomen soft; abdomen nontender Musculoskeletal: s/p left knee surgery, dressing CDI, CSM checks intact LLE Skin: no rashes, warm and dry Neurologic: no focal motor deficits Psychiatric: A+Ox3, euthymic affect Results & Data Results & Data Vital Signs (Past 12 Hours) Vital Signs Temp Pulse Resp BP Pulse Ox O2 Del Method 11/16/22 15:51 36.8 C 70 16 126/74 96 Room Air 11/16/22 08:26 75 128/76 11/16/22 07:35 36.5 C 71 18 121/75 96 Room Air Laboratory Results Short CBC 11/16/22 Range/Units 06:39 WBC 12.78 H (4.8-10.8) K/ul Hgb 10.5 L (14.0-18.0) g/dl Hct 31.6 L (42.0-52.0) % Plt Count 412 H (130-400) K/uL BMP 11/16/22 06:39 Sodium 134 L Potassium 3.8 Chloride 101 Carbon Dioxide 25 BUN 15 Creatinine 0.84 Glucose 106 H Calcium 8.2 L
--- NOTE | 2022-11-16 16:22 | Communication Note ---
Date of Service: November 16, [address] Song today for wound check. Continued erythema. ID team recommending 4 weeks IV antibx since no joint involvement noted. Prepatellar cx growing MSSA.
[2022-11-16] MEDS: SENNA 8.6 MG TAB PO SCH (21:33)
[2022-11-17] MEDS: ACETAMINOPHEN 500 MG TAB PO SCH ×2 (05:15→14:06)
[2022-11-17] MEDS: ceFAZolin 2000MG 2,000 MG/15 ML SYR IV SCH ×2 (05:15→14:06)
[2022-11-17] MEDS: DOCUSATE SODIUM 100 MG CAP PO SCH (07:32)
[2022-11-17] MEDS: lisinopril 20 MG TAB PO SCH (07:33)
[2022-11-17] MEDS: amLODIPine BESYLATE 5 MG TAB PO SCH (07:33)
[2022-11-17] MEDS: LISINOPRIL/HCTZ 20/12.5MG 1 TAB TAB PO SCH (07:33)
[2022-11-17] MEDS: MULTIVITAMIN TAB PO SCH (07:33)
[2022-11-17 08:34] LABS: Hematocrit (blood only) 31.8 % (42.0-52.0); Hemoglobin 10.2 g/dl (14.0-18.0); Mean Corpuscular Hemoglobin 28.1 pg (25.0-34.0); Mean Corpuscular Hgb Conc 32.1 g/dL (32.0-36.0); Mean Corpuscular Volume 87.6 fL (80.0-100.0); Mean Platelet Volume 10.9 fL (9.4-12.4); Platelet Count 434 K/uL (130-400); RDW Coefficient of Variation 13.7 % (11.5-14.5); Red Blood Count 3.63 M/uL (4.70-6.10); White Blood Count 10.66 K/ul (4.8-10.8)
[2022-11-17 08:45] LABS: BUN Creatinine Ratio 17.5 (10-20); Calcium 8.6 mg/dl (8.6-10.3); Creatinine Clr Calc Pharmacy 127.9 ml/min; Est GFR (African American) 109.4 ml/min; Est GFR (Non-African American) 94.4 ml/min; Potassium 3.9 mmol/L (3.5-5.1)
[2022-11-17] MEDS: LACTATED RINGER'S 1,000 ML IV SCH (10:19)
--- NOTE | 2022-11-17 13:15 | Orthopedic Progress Note ---
Date of Service November 17, 2022 Assessment & Plan (1) Septic prepatellar bursitis of left knee: Plan: 66 yo male stable POD #3 s/p I&D septic prepatellar bursitis, 1 month s/p left TKA 1. Med management- IV abx, PICC line in place 2. DVT prophylaxis- ASA, SCDs 3. PT/OT 4. D/C planning- home w/ HH, IV abx x 4 weeks Admission and Anticipated Discharge Date Admission Date: November 13, 2022 Subjective Pt resting in bed, pain controlled, denies complaints Physical Exam Physical Exam: Incision intact with tanisha; mild, crusted serous drainage distal pole of incision, swelling entire knee and lower leg, no erythema or significant effusio n, mild pain with gentle ROM Results & Data Vital Signs (Past 12 Hours) Vital Signs Temp Pulse Resp BP Pulse Ox O2 Del Method 11/17/22 09:00 Room Air 11/17/22 07:20 37 C 68 18 146/86 H 96 Room Air Laboratory Results 11/17/22 11/17/22 Range/Units 07:28 07:28 WBC 10.66 (4.8-10.8) K/ul RBC 3.63 L (4.70-6.10) M/uL Hgb 10.2 L (14.0-18.0) g/dl Hct 31.8 L (42.0-52.0) % MCV 87.6 (80.0-100.0) fL MCH 28.1 (25.0-34.0) pg MCHC 32.1 (32.0-36.0) g/dL RDW Std Deviation 44.0 (36.4-46.3) fL RDW Coeff of Td 13.7 (11.5-14.5) % Plt Count 434 H (130-400) K/uL MPV 10.9 (9.4-12.4) fL Sodium 136 (136-145) mmol/L Potassium 3.9 (3.5-5.1) mmol/L Chloride 102 (98-107) mmol/L Carbon Dioxide 28 (21-32) mmol/L Anion Gap 6 (3-11) BUN 14 (6-23) mg/dl Creatinine 0.80 (0.6-1.4) mg/dl Est Cr Clr Drug Dosing 127.9 ml/min Est GFR ( Amer) 109.4 ml/min Est GFR (Non-Af Amer) 94.4 ml/min BUN/Creatinine Ratio 17.5 (10-20) Glucose 111 H (70-99(Fasting)) mg/dl Calcium 8.6 (8.6-10.3) mg/dl
--- NOTE | 2022-11-17 14:31 | Discharge Summary ---
Discharge Summary Date of Service November 17, 2022 Notes For Next Care Provider Infected prepatellar bursitis s/p TKA on 10/13/22 Medication Changes From Visit Ancef 2gm Q8H x 4 weeks (due to complete course 12/15) Admission HPI Per Admitting Provider 66-year-old male with PMH HTN, HLD, and other problems listed below who presents to the ED for evaluation of left knee swelling and pain. History obtained from the patient. S/p left TKA on 10/13/[address] Song. Patient states he had been recovering well from surgery. 5 days ago, patient reports he developed chills and fever. The following day, his left knee was swollen and red. The redness and swelling progressively got worse and he continued to run a fever. He was seen in the orthopedics office on 12/11 and had joint aspiration done. He was also started on cephalexin. Culture grew MSSA. Once patient arrived to the hospital, left knee started to spontaneously drain purulent fluid. Patient denies chest pain and shortness of breath. No lightheadedness, dizziness, diaphoresis, syncopal events. He denies abdominal pain, nausea, vomiting, diarrhea. No urinary symptoms. In the ED, patient has low-grade temp 38.0, WBC 18 K. He was given IV ceftriaxone, IV daptomycin, IVF. Admission Exam Per Admitting Provider Constitutional: WD/WN, vitals as above Eyes: PERRL, conjunctivae normal, anicteric sclerae ENMT:L external ear and nose normal, oropharynx normal Respiratory: normal respiratory effort, lungs clear to auscultation Cardiovascular: Rate/Rhythm: regular rate and regular rhythm Heart Sounds: + murmur (Grade 3/6, systolic) Vessels: normal peripheral pulses Extremities: no edema Gastrointestinal (Abdomen): normal bowel sounds, soft, nontender, no hepatosplenomegaly Musculoskeletal: no cyanosis or clubbing, extremities motor strength 5/5 Knee: + knee abnormal to inspection, + skin erythema and + surgical incision Left knee edematous with erythema and purulent drainage from distal aspect of incision Skin: no rashes, warm and dry Neurologic: PERRL, EOMI, accommodation nl, no face palsy, no dysarthria Psychiatric: A+Ox3, euthymic affect Principal Dx & Hospital Course #1 = Principal Diagnosis (1) Septic prepatellar bursitis of left knee: (2) History of total left knee replacement: (3) HTN (hypertension): (4) HLD (hyperlipidemia): Plan This is a 66yo M with a PMH of HTN, HLD and L TKA on 10/13/2022 who presented from home with reports of left knee pain and was admitted with concern for septic joint. Presented to ED with low grade temp and WBC of 18k. Had joint aspiration on 11/11 with culture growing MSSA. Underwent left knee washout I&D on 11/15/[address] Song and was found to have infected prepatellar bursitis. Per operative report, aspiration of the joint fluid from the knee joint revealed clear synovial fluid which was sent for stat Gram stain revealed no evidence of organisms for this reason the decision was made to washout the prepatellar bursa and not exposed to the total knee. Was treated with IV daptomycin and IV ceftriaxone initially but operative cultures grew MSSA. ID recommending 4 weeks IV Ancef. PICC line ordered. Blood cultures without growth to date. PICC line in place, patient education and home health arranged. Patient comfortable and hemodynamically stable at time of discharge home. Discharge Exam Gen: WD/WN, NAD, standing beside bed, A&Ox3 HEENT: Normocephalic, atraumatic, conjunctivae moist, sclerae anicteric, mucous membranes moist Lung: Clear to Auscultation bilaterally, no wheezes/rales/rhonchi Heart: Regular rate, regular rhythm, no murmurs, rubs, or gallops Abdomen: Soft, NT, ND +BS x 4 Extremities: + L Knee with healing incisions, tanisha present; mild, crusted serous drainage distal aspect of incision, edema of knee extending into lower extremity, mildly TTP, ambulating without issue Skin: Warm, no rash Updated Medication List Medication Instructions Recorded Confirmed Type amlodipine 10 mg tablet 10 mg PO DAILY 11/13/22 11/13/22 History lisinopril 20 mg tablet 20 mg PO DAILY 11/13/22 11/13/22 History lisinopril 20 1 tab PO DAILY 11/13/22 11/13/22 History mg-hydrochlorothiazide 12.5 mg tablet lovastatin 20 mg tablet 20 mg PO DAILY 11/13/22 11/13/22 History oxycodone 5 mg tablet 5 - 10 mg PO Q6H PRN Pain 11/13/22 11/13/22 History cefazolin 2 gram intravenous 2 g IV Q8H 4 weeks #84 ea 11/17/22 Rx solution Hospital Stay Data Consultations 11/13/22 16:31 ED Decision to Admit Stat 11/13/22 18:27 Consult Orthopedic Surgery Routine 11/14/22 16:19 Consult Infectious Diseases Routine Procedures Performed Operation Date: 11/14/22 10:10 Actual Procedures p Left Knee Washout Incision and Drainage (Left) - Bal Song, DO Pending Results Patient Have Any Pending Studies at Discharge: No Discharge Instructions Given to Patient (Per Discharging Provider) MEDICATION CHANGES: Ancef 2gm Q8H x 4 weeks (due to complete course 12/15) SUMMARY OF TEST RESULTS: You were admitted to hospital secondary to knee pain and found to have a septic prepatellar bursitis of left knee Underwent washout I&D by Dr. Song Operative culture grew MSSA Per infectious disease recommendation, patient to go home on IV abx as above PICC line in place, patient education and home health arranged PENDING TEST RESULTS: None RECOMMENDATIONS FOR FOLLOW-UP: Follow up with PCP and orthopedic surgery as scheduled. Complete antibiotic in its entirety. Continue home medication regimen as scheduled. OTHER INSTRUCTIONS: Seek medical attention if you have: * temperature above 101 * chest pain or trouble breathing * abdominal pain, nausea, vomiting * diarrhea, dark stools or bloody stools * any unanswered questions or concerns Call 911 if symptoms are severe. Please take good care of yourself. Call if you have any questions or problems. You can reach a [facility] hospitalist on duty at [facility] 24 hours a day by calling [phone]. Total Time Total Time Spent Total Time Spent (In Minutes): 60 Supervising Physician Co-Signing Physician Notes delayed entry date of service noted above Attending Addendum: care coordinated with TATYANA Turner please refer to her notes for full details, I agree with her notes patient seen and examined, records reviewed by myself as well ASSESSMENT AND PLAN diagnoses and plan of care as per TATYANA Turner's notes Mj Patricio MD
== END 2022-11-17 16:25 | disposition home health service (06) | DRG 502 ==
LOC: ED 13:37 → 3W 15:40 → SUATTDRO 15:40 → 3W 18:29
DX: M71.162 Other infective bursitis, left knee; Z96.653 Presence of artificial knee joint, bilateral; Z98.890 Other specified postprocedural states; B95.61 Methicillin susceptible Staphylococcus aureus infection as the cause of diseases classified elsewhere; B96.89 Other specified bacterial agents as the cause of diseases classified elsewhere; E78.5 Hyperlipidemia, unspecified; I10 Essential (primary) hypertension